=== PATIENT | female | born 1995 | race African-American/Black ===

== ENCOUNTER 2022-11-02 06:08 | Emergency (ER) | payer MEDICAID ==
[~2022-11-02] VITALS: Ht 165.1 cm; Wt 111.0 kg
[2022-11-02 06:11] VITALS: BP 126/70; PULSE 102; RESP 16; TEMP 98.4; O2SAT 98
== END 2022-11-02 08:37 | disposition left against medical advice (07) ==
LOC: ER 06:08
DX: R51.9 Headache, unspecified (principal); T76.21XA Adult sexual abuse, suspected, initial encounter; Z53.21 Procedure and treatment not carried out due to patient leaving prior to being seen by health care provider
CPT/HCPCS: 99281